=== PATIENT | female | born 1975 | race American Indian/Alaskan Native ===

== ENCOUNTER 2017-11-27 16:49 | Emergency (ER) | payer MEDICARE, OTHER ==
[2017-11-27 16:57] VITALS: BP 141/81; PULSE 116; RESP 16; O2SAT 100
[2017-11-27 17:00] VITALS: TEMP 99.5
[2017-11-27] MEDS ORDERED: Sodium Chloride 0.9% 1,000 ML IV STA (18:15)
--- NOTE | 2017-11-27 18:35 | ED PDOC ---
HPI: Female Pain Time Seen by Provider: 11/27/17 17:23 Chief Complaint (Nursing): Female Genitourinary Chief Complaint (Provider): Female Genitourinary History Per: Patient History/Exam Limitations: no limitations Onset/Duration Of Symptoms: Other (x 5th episode of vaginal b since October) Additional Complaint(s): [place] is a 42 year old female who presents to the emergency department for medical evaluation of vaginal bleeding. Patient states she had her 5th episode of vaginal bleeding since October. Patient states she has been bleeding this episode with clots. Reports crampy, abdominal pain with no fever or vomiting. PMD: Haja Gilbert Past Medical History Reviewed: Historical Data, Nursing Documentation, Vital Signs Vital Signs: Last Vital Signs Temp 99.5 F 11/27/17 16:54 Pulse 116 H 11/27/17 16:54 Resp 16 11/27/17 16:54 BP 141/81 11/27/17 16:54 Pulse Ox 100 11/27/17 16:54 - Medical History PMH: Diabetes, HTN, Hypercholesterolemia - Surgical History Surgical History: - Family History Family History: States: Unknown Family Hx - Home Medications Home Medications: Ambulatory Orders Medication Instructions Recorded Cholecalciferol [Vitamin D 1000 IU] 2,000 iu PO DAILY 11/06/14 Gabapentin 300 mg PO BID 11/06/14 Insulin Glargine,Hum.rec.anlog 60 unit SC HS 11/06/14 [Lantus] Losartan Potassium 20 mg PO DAILY 11/06/14 Metformin Hydrochloride/Germaine 1 tab PO BID 11/06/14 [Janumet 1000 mg-50 mg] Pravastatin Sodium 20 mg PO DAILY 11/06/14 glyBURIDE [Micronase] 4 mg PO BID 11/06/14 Docusate [Colace] 100 mg PO BID #20 cap 11/27/17 Ferrous Sulfate [Feosol] 325 mg PO TID #21 tab 11/27/17 Medroxyprogesterone Acetate 20 mg PO QAM #14 tablet 11/27/17 [Provera] - Allergies Allergies/Adverse Reactions: Allergies Allergy/AdvReac Type Severity Reaction Status Date / Time No Known Allergies Allergy Unverified 11/06/14 15:35 Review of Systems ROS Statement: Except As Marked, All Systems Reviewed And Found Negative Constitutional: Negative for: Fever Gastrointestinal: Positive for: Abdominal Pain (Crampy). Negative for: Vomiting Genitourinary Female: Positive for: Vaginal Bleeding (5th episode) Physical Exam - Reviewed Nursing Documentation Reviewed: Yes Vital Signs Reviewed: Yes - Physical Exam Appears: Positive for: In Acute Distress (Moderate) Head Exam: Positive for: ATRAUMATIC, NORMAL INSPECTION, NORMOCEPHALIC Cardiovascular/Chest: Positive for: Tachycardia. Negative for: Irregularly Irregular Respiratory: Positive for: Normal Breath Sounds. Negative for: Respiratory Distress Gastrointestinal/Abdominal: Positive for: Normal Exam, Bowel Sounds, Soft. Negative for: Tenderness, Guarding, Rebound Pelvic Exam: Positive for: Active Bleeding, Blood, Other (Large blood clot noted at vaginal vault) Neurologic/Psych: Positive for: Alert, Oriented (x 3) - Laboratory Results Result Diagrams: 11/27/17 18:43 11/27/17 18:43 Urine POC: Negative - ECG O2 Sat by Pulse Oximetry: 100 (RA) Pulse Ox Interpretation: Normal - Physician Consult Information Time Consulting Hernandez Contacted: 19:00 Physician Contacted: Missy Garcia Outcome Of Conversation: Will evaluate patient. Medical Decision Making Medical Decision Making: Time: 18:13 Impression(s): Dysfunctional urine bleeding Plan: - Type and Screen - CMP - ED Urine - ED Urine Dipstick - CBC - Partial Thromboplastin Time - Prothrombin Time - Dilaudid 0.5 mg IVP STAT - Sodium Chlroide 0.9% 1,000 ml IV 1,000 mls/hr - Pelvis/Transvaginal Ultrasound Time: 19:00 Patient to be signed out to Dr. Quevedo, pending ultrasound and [facility] consult with Dr. Garcia. Scribe Attestation: Documented by Parker Mendez, acting as a scribe for Leesa Watkins MD Provider Scribe Attestation: All medical record entries made by the Scribe were at my direction and personally dictated by me. I have reviewed the chart and agree that the record accurately reflects my personal performance of the history, physical exam, medical decision making, and the department course for this patient. I have also personally directed, reviewed, and agree with the discharge instructions and disposition. Disposition - Clinical Impression Clinical Impression: Menorrhagia - Patient ED Disposition Is Patient to be Admitted: Transfer of Care - Disposition Disposition: Transfer of Care Disposition Time: 19:00 Condition: STABLE Additional Instructions: Please follow up with your [facility] Dentist in 3 days Prescriptions: Docusate [Colace] 100 mg PO BID #20 cap Ferrous Sulfate [Feosol] 325 mg PO TID #21 tab Medroxyprogesterone Acetate [Provera] 20 mg PO QAM #14 tablet Instructions: Menorrhagia (ED) Forms: [employer] (Vietnamese) Patient Signed Over To: Adebayo Quevedo
[2017-11-27 18:49] LABS: BASO # 0.1 K/uL (0.0-0.2); BASO % 0.9 % (0.0-2.0); EOS # 0.1 K/uL (0.0-0.7); HEMOGLOBIN 9.4 g/dL (12.0-16.0); LYMPH # 3.4 K/uL (1.0-4.3); LYMPH % 28.6 % (20.0-40.0); MEAN CORPUSCULAR HEMOGLOBIN 29.6 pg (27.0-31.0); MEAN CORPUSCULAR HGB CONC 32.5 g/dL (33.0-37.0); MONO # 0.7 K/uL (0.0-0.8); MONO % 5.8 % (0.0-10.0); NEUT # 7.6 K/uL (1.8-7.0); NEUT % 63.7 % (50.0-75.0); RBC 3.19 Mil/uL (3.80-5.20); RED CELL DISTRIBUTION WIDTH 14.5 % (11.5-14.5); WHITE BLOOD COUNT 11.9 K/uL (4.8-10.8)
[2017-11-27 19:10] LABS: ALB/GLOB RATIO 1.2 (1.0-2.1); ALT/SGPT 30 U/L (9-52); AST/SGOT 22 U/L (14-36); BLOOD UREA NITROGEN 13 mg/dl (7-17); CALCIUM 9.8 mg/dL (8.4-10.2); GFR AFRICAN-AMERICAN > 60; GFR NON-AFRICAN AMERICAN > 60; PARTIAL THROMBOPLASTIN TIME 31.9 Seconds (25.6-37.1); PROTHROMBIN TIME 10.8 Seconds (9.8-13.1)
--- NOTE | 2017-11-27 19:21 | ED PDOC ---
- Laboratory Results Result Diagrams: 11/27/17 18:43 11/27/17 18:43 Urine POC: Negative - ECG O2 Sat by Pulse Oximetry: 100 (RA) Pulse Ox Interpretation: Normal Medical Decision Making Medical Decision Making: Time: 19:00 Patient is signed out to me by Dr. Watkins, pending ultrasound and [facility] consult with Dr. Garcia. Ultrasound was reviewed. Patient was evaluated by Dr. Garcia ([facility]) head and neck surgeon. Patient can be discharged as per evaluation. Patient intends to follow up with her ROW BOSS in [place]. Diagnosis is Menorrhagia. Patient will be discharged with Rx for Tylenol with Coace, Feosol and Provera. Counseling was provided and all questions were answered regarding diagnosis. There is agreement to discharge plan. Return if symptoms persist or worsen. Scribe Attestation: Documented by Parker Mendez, acting as a scribe for Adebayo Quevedo MD Provider Scribe Attestation: All medical record entries made by the Scribe were at my direction and personally dictated by me. I have reviewed the chart and agree that the record accurately reflects my personal performance of the history, physical exam, medical decision making, and the department course for this patient. I have also personally directed, reviewed, and agree with the discharge instructions and disposition. Disposition - Clinical Impression Clinical Impression: Menorrhagia - POA Present On Arrival: None - Disposition Disposition: Routine/Home Disposition Time: 21:33 Condition: STABLE Additional Instructions: Please follow up with your [facility] in 3 days Prescriptions: Docusate [Colace] 100 mg PO BID #20 cap Ferrous Sulfate [Feosol] 325 mg PO TID #21 tab Medroxyprogesterone Acetate [Provera] 20 mg PO QAM #14 tablet Instructions: Menorrhagia (ED) Forms: [employer] (Yakut)
--- NOTE | 2017-11-27 20:55 | US ---
EXAM: US Pelvis Complete, Transabdominal CLINICAL HISTORY: 42 years old, female; Signs and symptoms; Menstruation abnormalities; Excessive menstruation; With irregular cycle; Additional info: Vag bleeding TECHNIQUE: Real-time transabdominal pelvic ultrasound (complete) with image documentation. COMPARISON: No relevant prior studies available. FINDINGS: Uterus/cervix: Uterus measures 11.1 x 6.3 x 5.6 cm in size. No myometrial mass. Endometrium: 0.7 cm in thickness. Right ovary: 2.5 x 1.6 x 2.0 cm in size. No mass. Normal flow. Left ovary: 2.9 x 1.1 x 2.2 cm in size. No mass. Normal flow. Free fluid: No significant free fluid. Bladder: Unremarkable as visualized. IMPRESSION: 1.No acute findings.
--- NOTE | 2017-11-27 21:12 | CP.PCM.CON ---
History of Present Illness - History of Present Illness History of Present Illness: Patient is a 42yo with a 5 week history of irregular bleeding. Patient reported since 10/16, she has had 5 episodes of heavy vaginal bleeding. Up to this point, her periods have been monthly otherwise. Patient reports this last episode lasted for 10 days and she just felt weak which is why she came to the hospital. She soaked 6 pads today, no dizziness, no loss of consciousness, no CP , no SOB, no abdominal pain, no fever, no N/V. Patient has not seen a film laboratory technician in a while, but back in October went to another ER and was discharged after being observed Past Patient History - Past Social History Smoking Status: Never Smoked - CARDIAC Hx Hypercholesterolemia: Yes Hx Hypertension: Yes - PULMONARY Hx Respiratory Disorders: (Denies) - ENDOCRINE/METABOLIC Hx Endocrine Disorders: Yes Hx Diabetes Mellitus Type 1: Yes - PSYCHIATRIC Hx Substance Use: No - SURGICAL HISTORY Hx Section: Yes - ANESTHESIA Hx Anesthesia: Yes Hx Anesthesia Reactions: No Meds Home Medications: Home Medication List Medication Instructions Recorded Confirmed Type Docusate [Colace] 100 mg PO BID #20 cap 11/27/17 Rx Ferrous Sulfate [Feosol] 325 mg PO TID #21 tab 11/27/17 Rx Medroxyprogesterone Acetate 20 mg PO QAM #14 tablet 11/27/17 Rx [Provera] Allergies/Adverse Reactions: Allergies Allergy/AdvReac Type Severity Reaction Status Date / Time No Known Allergies Allergy Unverified 11/06/14 15:35 Physical Exam - Head Exam Head Exam: ATRAUMATIC - Eye Exam Pupil Exam: PERRL - Respiratory Exam Respiratory Exam: NORMAL BREATHING PATTERN - Cardiovascular Exam Cardiovascular Exam: REGULAR RHYTHM - GI/Abdominal Exam GI & Abdominal Exam: Normal Bowel Sounds, Soft Additional comments: non tender, no rebound - Extremities Exam Extremities exam: Positive for: normal inspection - Neurological Exam Neurological exam: Oriented x3 Results - Vital Signs Recent Vital Signs: Last Vital Signs Temp 99.5 F 11/27/17 16:54 Pulse 116 H 11/27/17 16:54 Resp 16 11/27/17 16:54 BP 141/81 11/27/17 16:54 Pulse Ox 100 11/27/17 19:36 - Labs Result Diagrams: 11/27/17 18:43 11/27/17 18:43 Labs: Laboratory Results - last 24 hr 11/27/17 11/27/17 11/27/17 18:35 18:43 18:43 WBC 11.9 H RBC 3.19 L Hgb 9.4 L Hct 29.0 L MCV 91.0 MCH 29.6 MCHC 32.5 L RDW 14.5 Plt Count 324 MPV 8.0 Neut % (Auto) 63.7 Lymph % (Auto) 28.6 [place] % (Auto) 5.8 Eos % (Auto) 1.0 Baso % (Auto) 0.9 Neut # 7.6 H Lymph # 3.4 [place] # 0.7 Eos # 0.1 Baso # 0.1 PT INR APTT Sodium 137 Potassium 4.2 Chloride 99 Carbon Dioxide 25 Anion Gap 17 BUN 13 Creatinine 0.8 Est GFR ( Amer) > 60 Est GFR (Non-Af Amer) > 60 Random Glucose 122 H Calcium 9.8 Total Bilirubin 0.3 AST 22 ALT 30 Alkaline Phosphatase 71 Total Protein 7.5 Albumin 4.0 Globulin 3.5 Albumin/Globulin Ratio 1.2 Blood Type O POSITIVE Antibody Screen Positive BBK History Checked No verified bt 11/27/17 18:43 WBC RBC Hgb Hct MCV MCH MCHC RDW Plt Count MPV Neut % (Auto) Lymph % (Auto) [place] % (Auto) Eos % (Auto) Baso % (Auto) Neut # Lymph # [place] # Eos # Baso # PT 10.8 INR 1.0 APTT 31.9 Sodium Potassium Chloride Carbon Dioxide Anion Gap BUN Creatinine Est GFR ( Amer) Est GFR (Non-Af Amer) Random Glucose Calcium Total Bilirubin AST ALT Alkaline Phosphatase Total Protein Albumin Globulin Albumin/Globulin Ratio Blood Type Antibody Screen BBK History Checked Assessment & Plan - Assessment and Plan (Free Text) Assessment: A/p 1. Patient is a 42 yo with dysfuntional uterine bleeding with a Hgb of 9.4 and otherwise normal vitals. Patient was hydrated with IVF, U/S showed 11cm uterus, no structional or abnormal pathology. UPT negative. 2. Advised to start the patient on Provera 20mg PO q 7 days and to have patient make follow up appt with primary barrel centerer as outpatient 3. Consult appreciated - Date & Time Date: 11/27/17 Time: 21:10
== END 2017-11-27 22:02 | disposition home or self-care (01) ==
LOC: H.ER 16:49
DX: N92.0 Excessive and frequent menstruation with regular cycle (principal); E11.9 Type 2 diabetes mellitus without complications; Z79.4 Long term (current) use of insulin; E78.00 Pure hypercholesterolemia, unspecified; I10 Essential (primary) hypertension
CPT/HCPCS: 76856; 80053; 81025; 85025; 85610; 85730; 86850; 86900; 96374; 99283; J1170; J7040